=== PATIENT | female | born 1990 ===

== ENCOUNTER → 2016-06-08 | Outpatient (REF) | payer BC | LOC: M LAB REF 19:04 | PROVIDERS: ATTEND Physician Assistant | DX: R30.0 Dysuria (principal) ==

== ENCOUNTER → 2016-12-31 | Outpatient (REF) | payer BC, SELFPAY | LOC: M LAB REF 09:20 | PROVIDERS: ATTEND Physician Assistant | DX: R10.30 Lower abdominal pain, unspecified (principal) ==